=== PATIENT | male | born 1980 | race African-American/Black ===

== ENCOUNTER 2019-02-16 21:10 | Emergency (ER) | payer SELFPAY ==
[~2019-02-16] VITALS: Ht 185.4 cm; Wt 113.4 kg
[~2019-02-16 21:10] MED LIST: IBUPROFEN600 MG ORAL; PROMETHAZINE-C118 M1 ORAL
--- NOTE | 2019-02-16 21:20 | NUR ---
ER Nurse Note: Pt came from home c/o pain in his anus d/t hemorrids for about a week. 10/10 pain, throbbing. No active bleeding; pt able to ambulate. A&ox4, VSS, no signs of distress. ERMD at pt side; will continue to monitor.
[2019-02-16] MEDS ORDERED: ALBUTEROL2.5 MG/3 M INH (21:24)
[2019-02-16 21:25] VITALS: BP 153/97
[2019-02-16] MEDS ORDERED: ANUSOL-HC25 MG RECTAL (21:35)
--- NOTE | 2019-02-16 21:36 | Emergency Room Report ---
History of Present Illness General Chief Complaint: General Complaint Source: Patient Present Illness HPI This is a 38-year-old male with no past medical history. He presents with chief complaint of hemorrhoid pain. Onset for about a week. Worse with bowel movement. No bleeding. No fever chills but no nausea no vomiting. Pain is minimal. Allergies: Coded Allergies: No Known Allergies (Unverified , 02/16/19) Patient History Past Medical History: none, see triage record, old chart reviewed Past Surgical History: none Pertinent Family History: none Social History: Denies: smoking Immunizations: other Reviewed Nursing Documentation: PMH: Agreed; PSxH: Agreed Nursing Documentation-PMH Hx Asthma: Yes Review of Systems Eye: Denies: eye pain, blurred vision ENT: Denies: ear pain, nose congestion, throat swelling Respiratory: Denies: cough, shortness of breath Cardiovascular: Denies: chest pain, palpitations Gastrointestinal: Denies: abdominal pain, diarrhea, nausea, vomiting Musculoskeletal: Denies: back pain, joint pain Skin: Denies: rash Neurological: Denies: headache, numbness Endocrine: Denies: increased thirst, increased urine Hematologic/Lymphatic: Denies: easy bruising All Other Systems: negative except mentioned in HPI Physical Exam Vital Signs Date Time Temp Pulse Resp B/P (MAP) Pulse Ox O2 Delivery O2 Flow Rate FiO2 02/16/19 21:20 97.9 79 18 96 vitals normal Sp02 EP Interpretation: reviewed, normal General Appearance: well appearing, no apparent distress, alert Head: normocephalic, atraumatic Eyes: bilateral eye PERRL, bilateral eye EOMI ENT: hearing grossly normal, normal pharynx Neck: full range of motion, supple, no meningismus Respiratory: chest non-tender, lungs clear, normal breath sounds Cardiovascular #1: regular rate, rhythm, no murmur Gastrointestinal: normal bowel sounds, non tender, no mass, no organomegaly, no bruit, non-distended Rectal: other - Patient has a thrombosed hemorrhoid about 1 cm in size. No redness. Mildly tender. Musculoskeletal: back normal, gait/station normal, normal range of motion Psychiatric: mood/affect normal Skin: warm/dry Medical Decision Making Diagnostic Impression: Primary Impression: External thrombosed hemorrhoids ER Course Patient with a small thrombosed hemorrhoid. He does not want to have it excised right now. We'll put him on medication. We'll have him follow-up with a surgeon. No evidence of abscess. No evidence of bleeding. Last Vital Signs Date Time Temp Pulse Resp B/P (MAP) Pulse Ox O2 Delivery O2 Flow Rate FiO2 02/16/19 21:20 97.9 79 18 96 Status: unchanged Disposition: HOME, SELF-CARE Condition: Stable Scripts Hydrocortisone Acetate* (ANUSOL-HC*) 25 Mg Supp.rect 1 SUPP RECTAL TWICE A DAY, #14 SUPP Prov: Forrest Azar MD 02/16/19 Additional Instructions: Follow-up with your doctor in 7 days. Return if symptom worsen. Forrest Azar MD February 16, 2019 21:36
[2019-02-16 21:45] VITALS: BP 153/97
--- NOTE | 2019-02-16 21:45 | NUR ---
ER Nurse Note: Pt seen, treated, medically cleared for discharge by ERMD. Discharge instructions given with repeat verbazliaion by pt. Instructed pt to follow up with primary care provider within one week. Pt a&ox4, VSS, no signs of distress. ID band removed. Pt left with all belongings with steady gait via own transporation.
== END 2019-02-16 21:35 | disposition home or self-care (01) ==
LOC: EMR 21:34
DX: K64.4 Residual hemorrhoidal skin tags (principal); J45.909 Unspecified asthma, uncomplicated
CPT/HCPCS: 99281